=== PATIENT | male | born 1985 | race Hispanic/Latino ===

== ENCOUNTER 2017-05-24 14:13 | Emergency (ER) | payer BC ==
[~2017-05-24] VITALS: Ht 180.3 cm; Wt 98.3 kg
[2017-05-24] MEDS ORDERED: MOTRIN800 MG PO (14:43)
[2017-05-24 14:55] VITALS: BP 141/76
== END 2017-05-24 15:07 | disposition home or self-care (01) ==
LOC: EME 14:13
PROC: 3E0T3BZ Introduction of Anesthetic Agent into Peripheral Nerves and Plexi, Percutaneous Approach (ICD-10-PCS; principal; 2017-05-24)
DX: K02.9 Dental caries, unspecified (principal); R22.0 Localized swelling, mass and lump, head; Z72.0 Tobacco use
CPT/HCPCS: 99281; 99284